=== PATIENT | female | born 1980 | race Caucasian/White ===

== ENCOUNTER 2020-11-03 08:27 | Outpatient (CLI) | payer OTHER, SELFPAY | END 2020-11-03 08:28 | disposition home or self-care (01) | LOC: ANHSURGERY 08:30 | PROVIDERS: PCP Family Medicine; Visit Provider Surgery | DX: K43.2 Incisional hernia without obstruction or gangrene (principal) | CPT/HCPCS: 36415; 86850; 86900; 86901 ==

== ENCOUNTER 2020-11-05 02:31 | Outpatient (CLI) | payer OTHER, SELFPAY ==
[2020-11-05 17:23] LABS: SARS-CoV-2 RNA PCR Negative
== END 2020-11-05 02:32 | disposition home or self-care (01) ==
LOC: ANHCOVIDDT 02:32
PROVIDERS: PCP Family Medicine; Visit Provider Surgery
DX: Z01.812 Encounter for preprocedural laboratory examination (principal); Z20.822 Contact with and (suspected) exposure to COVID-19
CPT/HCPCS: C9803; U0003

== ENCOUNTER 2020-11-08 01:27 | Day surgery (SDC) | payer OTHER, SELFPAY ==
[2020-11-01 12:58] VITALS: BMI 23.9
[2020-11-08] VITALS (7 sets, daily range): BP systolic 106–114; BP diastolic 62–75; PULSE 70–84; RESP 13–17; TEMP 36.3–36.8; O2SAT 100; BMI 24.1
--- NOTE | 2020-11-08 11:52 | WPDANESEPPF ---
Anes - Initial Pre Proc Eval Procedure: Operation Date: 11/08/20 13:00 Proposed Procedures p Laparoscopic Repair Of Recurrent Epigastric Hernia With Mesh - Declan Dejesus MD Date/Time: 11/08/20 11:52 Surgeon: Declan Dejesus MD Pre Op Diagnosis: Recurrent Epigastric Hernia Patient Data Age: 40 Gender: F Height: 5 ft 3 in Weight: 61.25 kg Allergies Allergy/AdvReac Type Severity Reaction Status Date / Time No Known Allergies Allergy Unverified 11/01/20 12:38 Home Medications Medication Instructions Recorded Confirmed Type levothyroxine 75 mcg capsule 75 mcg PO DAILY 06/02/20 11/01/20 History Patient hx anesthesia problems: none Family hx anesthesia problems: none [facility] Past Medical History Medical History (Updated 10/27/20 @ 10:21 by Josefina Delgado) Hypothyroidism (acquired) Surgical History Surgical History H/O breast augmentation H/O sinus surgery H/O umbilical hernia repair with out mesh History of x2 History of endometrial ablation Family History Family History Grandparent Diabetes mellitus Grandparent Cerebrovascular accident Other Family history of cardiovascular disease Social History Social History Smoking status: Never smoker Second hand tobacco smoke exposure: No Alcohol intake: current Drinks per week: 3 Substance use: never Substance use type: does not use Living arrangements: with family 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 Questions were solicited and answers provided to the satisfaction of the patient/family/POA.
[2020-11-08] MEDS: ACETAMINOPHEN 500 MG TABLET 1000 MG PO (12:17)
[2020-11-08] MEDS: LACTATED RINGERS 1,000 ML 30 ML IV CONT (12:24)
[2020-11-08] MEDS: KETOROLAC 15 MG/ML VIAL (*BKC) IV PUSH (12:25)
--- NOTE | 2020-11-08 12:42 | WPDHPUPDATE1 ---
History and Physical Update Update Date/Time: 11/08/20 12:42 History and Physical has been reviewed, including an updated exam of the patient. There are NO changes in the patient's condition. Risks, benefits, and alternatives have been discussed and questions answered. Patient agrees to proceed with procedure.
[2020-11-08] MEDS: ceFAZolin 2 GM/D5W 50 ML 2 GM/50 ML BAG IVPB (12:57)
[2020-11-08] MEDS: BUPIVACAINE HCL 0.5% PF 30 ML VIAL INFILTRATE (13:19)
--- NOTE | 2020-11-08 13:54 | SUR.OPER ---
Mesh/Ventralight ST Mesh With Echo PS Lot [id number] exp 2022-05-25, Echo PS Lot [id number] exp 2022-05-25. [id number], lot [id number] 2021-02-25,
--- NOTE | 2020-11-08 14:16 | PM.PROC ---
Procedure Note - Detailed Date of procedure: 11/08/20 Pre-op diagnosis: Recurrent Epigastric Hernia Procedure performed: Laparoscopic repair of a recurrent epigastric hernia with mesh Description of procedure: DESCRIPTION OF PROCEDURE: The patient was placed in the supine position on the operative table and after induction of adequate general endotracheal anesthesia by Jean Paul Anesthesia, the entire abdomen was prepped and draped in usual sterile fashion and the head placed slightly up. An Ioban drape was used to prevent contact of the mesh with the skin during this clean case. Following this, local anesthetic was placed and a spot selected about two fingerbreadths below the costal margin on the left and a small incision made after instilling local anesthetic using 0.25% Marcaine with epinephrine. Following this, a Veress needle technique using the water drop test was completed. Using 2 towel clips on the skin, I carefully elevated the skin and then passed the Veress needle into the abdomen and we could see that the saline droped through the Veress needle easily. CO2 gas was connected and the abdomen was insufflated to 14 mm Hg pressure after starting out at around 9. Following this, 0 degree 5 mm laparoscope was placed inside a 5 mm trocar, which was carefully twisted into the abdomen without difficulty, seeing a open pneumoperitoneum as we entered. Thus, the trocar was removed, the sleeve confirmed to be nicely within the abdomen, and we carefully inspected the abdomen. Careful inspection of the abdomen revealed no inguinal hernias. A small defect in the epigastric area right at the lower end of the Falciform ligament that was actually difficult to see initially, but after placing a 12 mm port in the left lower quadrant under direct vision with the laparoscope, we could see up into a 21 mm defect that had been measured then with an instrument with a known cm marker. There was no incarceration of any omentum or any other adhesions to the underside of the hernia. There was no sign of a defect under the umbilicus. In order to have the falciform out of the way I carefully incised the lower end of the falciform for about 5-6 cm from the upper end of the hernia defect toward the cephalad direction. This allowed us to place the mesh flat against the anterior abdominal wall once we placed the mesh into the abdomen. We had a very little bleeding from this. This was nicely cauterized and then moved out of the way. Following this, we carefully planned by measuring the defect. Our mesh, a circular 11 cm piece of Venta-lite piece of mesh was chosen, so that we would have 4.5 cm of overlap in all directions over the circular epigastric defect. Following this, the ventra-lite balloon hernia system mesh was rolled and this was inserted through the 12 mm port after rolling it to protect the absorbable covering on the downside of the mesh. A black silk suture was placed through the blue system as loop that is used to extract the tubing for the balloon positioning system such that I could grab this and pull it up through the epigastric area with the suture Passer. I used the suture passer after making a small opening with an 11 blade knife after placing local anesthetic directly in the center of the epigastric defect. The suture passer was used to grasp this centering silk stitch on the piece of mesh, and this was pulled up, centering it. Then I inflated the balloon system which brought the mesh up against the anterior abdominal wall centering it nicely with the center of the 11 centimeter piece of mesh over the center of the recurrent epigastric herhia site. Two rows of tacks using the absorbable Tacker were completed circumferentially at the edge and then about a centimeter back from the edge. This seemed to give good security to the mesh completely covering the epigastric defect. Once this was completed, we carefully removed the tacker, snipped the tubing on the ball
[2020-11-08] MEDS: oxyCODONE HCL (*CRX) 5 MG TAB IR PO (15:10)
== END 2020-11-08 15:58 | disposition home or self-care (01) ==
PROVIDERS: PCP Family Medicine; Visit Provider Surgery
PROC: (CPT 49652; principal; 2020-11-08 13:00)
DX: K43.2 Incisional hernia without obstruction or gangrene (principal); E03.9 Hypothyroidism, unspecified
CPT/HCPCS: 49652; A9270; C1781; C9803; J0131; J0330; J0690; J1100; J1885; J2250; J2405; J2704; J2710; J3010; J7120; U0003

== ENCOUNTER → 2023-03-15 12:48 | Outpatient (CLI) | payer OTHER, SELFPAY ==
--- NOTE | ~2023-03-15 | MR_ITS ---
MRI of the brain Clinical History: Focal motor weakness Technique: Axial and sagittal T1-weighted images were acquired. These were followed by axial T2-weigh sue, diffusion weighted, gradient, and FLAIR images. Following intravenous administration of 13 cc Mu ltiHance gadolinium, T1-weighted fat-sat imaging was performed in the axial and coronal planes. Findings: There is no signal abnormality seen in the brain parenchyma. No acute infarct, intracranial hemorrhage, or mass lesion. Ventricles are spaces are unremarkable. Orbits are unremarkable. Paranasal sinuses and mastoid air ce lls are essentially clear. Major intracranial flow voids appear intact. Sagittal midline structures are intact. No abnormal postcontrast enhancement identified. IMPRESSION: Unremarkable exam. Reviewed, dictated and finalized at location . IMPRESSION: Unremarkable exam.
== END ==
PROVIDERS: PCP Family Medicine; Visit Provider Internal Medicine Endocrinology, Diabetes & Metabolism
DX: R53.1 Weakness (principal)
CPT/HCPCS: 70553; A9577

== ENCOUNTER 2025-03-25 08:55 | Outpatient (CLI) | payer OTHER, SELFPAY ==
--- NOTE | ~2025-03-25 | MR_ITS ---
MRI of the lumbar spine Clinical History: Back pain, left sciatica Technique: Axial T2-weighted images, and sagittal T1-weighted, T2-weighted, and T2 fat-sat images wer e acquired. Findings: There is no fracture or subluxation of the lumbar spine. Vertebral bodies maintain normal h eight and alignment. No suspicious bone marrow signal abnormality seen. At L1-L2, L2-L3, L3-L4, there is no disc bulge or herniation. There is mild to moderate facet arthrop athy levels. No spinal canal stenosis or neural foraminal narrowing at these levels. At L4-L5, there is mild diffuse disc bulge and advanced facet arthropathy. There is a left synovial c yst measuring up to 1.4 cm in maximum diameter (sagittal image 9), resulting in moderate to severe th ecal sac compression, and probable impingement of the descending left L5-S1 level nerve root. Neural foramina this level are preserved otherwise. At L5-S1, there is no disc bulge or herniation. No spinal canal stenosis or neural foraminal narrowin g. Impression: 1.4 cm left synovial cyst at L4-L5, resulting in moderate to severe thecal sac compression and imping ement of descending left L5-S1 level nerve root. Reviewed, dictated and finalized at location . Impression: 1.4 cm left synovial cyst at L4-L5, resulting in moderate to severe thecal sac compression and impingement of descending left L5-S1 level nerve root.
== END 2025-03-25 08:56 | disposition home or self-care (01) ==
PROVIDERS: PCP Anesthesiology
DX: M54.42 Lumbago with sciatica, left side (principal); M99.03 Segmental and somatic dysfunction of lumbar region
CPT/HCPCS: 72148